=== PATIENT | female | born 1995 | race American Indian/Alaskan Native ===

== ENCOUNTER 2021-03-03 21:54 | Emergency (ER) | payer SELFPAY ==
[2021-03-03 22:00] VITALS: BP 123/73
[2021-03-03] MEDS ORDERED: IBUPROFEN 600 MG TAB PO ONE (22:39)
[2021-03-03] MEDS ORDERED: ACETAMINOPHEN 500 MG TAB PO ONE (22:39)
--- NOTE | 2021-03-03 22:44 | Emergency Department Report ---
ED General Adult HPI - General Chief complaint: Urogenital-Female Stated complaint: BREAST PAIN Source: patient Mode of arrival: Ambulatory Limitations: No Limitations - History of Present Illness Initial comments: Patient is a nulliparous 25-year-old -[place] female with no past medical history and who is not on control, presents to the ED with persistent bilateral breast pain intermittently for the last 3 months, but which has become constant in the last 2 weeks, worse in the last 3 days. Patient states that the pain is especially worse during her menstrual cycle. Patient denies heavy lifting, fever, chills, nausea, vomiting, traumatic injury, heavy lifting, shortness of breath, chest pain, abdominal pain, lactorrhea, dizziness, syncope, lightheadedness, cough or sore throat. MD Complaint: Bilateral breast pain -: Gradual, month(s) (3) Location: chest (Bilateral breast pain) Radiation: non-radiation Severity scale (0 -10): 8 Quality: aching, sharp Consistency: constant Improves with: none Worsens with: movement, other (Palpation) Associated Symptoms: denies other symptoms, other (Bilateral breast pain). denies: confusion, chest pain, cough, diaphoresis, fever/chills, headaches, malaise, nausea/vomiting, rash, shortness of breath, syncope, weakness Treatments Prior to Arrival: none - Related Data Previous Rx's Medication Instructions Recorded Last Taken Type Ibuprofen [Motrin] 800 mg PO Q8HR PRN #30 tablet 03/03/21 Unknown Rx traMADoL [Ultram] 50 mg PO Q6HR PRN #12 tablet 03/03/21 Unknown Rx ED Review of Systems ROS: Stated complaint: BREAST PAIN Other details as noted in HPI Constitutional: denies: chills, fever Eyes: denies: eye pain, eye discharge, vision change ENT: denies: ear pain, throat pain Respiratory: denies: cough, shortness of breath, wheezing Cardiovascular: other (Bilateral breast pain). denies: chest pain, palpitations Endocrine: no symptoms reported Gastrointestinal: denies: abdominal pain, nausea, diarrhea Genitourinary: denies: urgency, dysuria, discharge Musculoskeletal: denies: back pain, joint swelling, arthralgia Skin: denies: rash, lesions Neurological: denies: headache, weakness, paresthesias Psychiatric: denies: anxiety, depression Hematological/Lymphatic: denies: easy bleeding, easy bruising ED Past Medical Hx - Past Medical History Previous Medical History?: No - Surgical History Past Surgical History?: No - Medications Home Medications: Home Medications Medication Instructions Recorded Confirmed Last Taken Type Ibuprofen [Motrin] 800 mg PO Q8HR PRN #30 tablet 03/03/21 Unknown Rx traMADoL [Ultram] 50 mg PO Q6HR PRN #12 tablet 03/03/21 Unknown Rx ED Physical Exam - General Limitations: No Limitations General appearance: alert, in no apparent distress - Head Head exam: Present: atraumatic, normocephalic, normal inspection - Eye Eye exam: Present: normal appearance, PERRL, EOMI Pupils: Present: normal accommodation - ENT ENT exam: Present: normal exam, normal orophraynx, mucous membranes moist, TM's normal bilaterally, normal external ear exam - Neck Neck exam: Present: normal inspection, full ROM - Respiratory Respiratory exam: Present: normal lung sounds bilaterally, chest wall tenderness (Palpable bilateral breast tenderness, worse on the left than on the right), other (Female RN medical auditor Ms. Dunn present during the breast exam). Absent: respiratory distress, wheezes, rales, rhonchi, stridor, decreased breath sounds, prolonged expiratory - Cardiovascular Cardiovascular Exam: Present: regular rate, normal rhythm, normal heart sounds. Absent: systolic murmur, diastolic murmur, rubs, gallop - GI/Abdominal GI/Abdominal exam: Present: soft, normal bowel sounds. Absent: tenderness, guarding, rebound, hyperactive bowel sounds, hypoactive bowel sounds, organomegaly - Extremities Exam Extremities exam: Present: normal inspection, full ROM, normal capillary refill - Back Exam Back exam: Present: normal inspection, full ROM. Absent: tenderness, CVA tenderness (R), CVA tenderness (L), muscle spasm, paraspinal tenderness, vertebral tenderness - Neurological Exam Neurological exam: Present: alert, oriented X3, CN II-XII intact, normal gait, reflexes normal - Psychiatric Psychiatric exam: Present: normal affect, normal mood - Skin Skin exam: Present: warm, dry, intact, normal color. Absent: rash ED Course Vital Signs 03/03/21 21:55 Temperature 99.2 F Pulse Rate 66 Respiratory 18 Rate Blood Pressure 123/73 [Right] O2 Sat by Pulse 98 Oximetry ED Medical Decision Making - Medical Decision Making This is a nulliparous 25-year-old -[place] female with no past medical history and who is not on control, presents to the ED with persistent bilateral breast pain intermittently for the last 3 months, but which has become constant in the last 2 weeks, worse in the last 3 days. Patient states that the pain is especially worse during her menstrual cycle. In the ED, patient is alert and oriented x3 and is not in any distress. Patient was treated for pain in the ED. Based on the history and physical exam findings, the patient symptoms are likely due to fibrocystic breast changes and breast disease. Patient was discharged home on pain medications and given a referral to the [facility] physician Dr. Mazariegos for follow-up in 3 to 5 days for reevaluation. Patient was advised return to the ED immediately if symptoms get worse. - Differential Diagnosis Fibrocystic breast disease; fibrocystic breast changes; mastitis; abscess Critical care attestation.: If time is entered above; I have spent that time in minutes in the direct care of this critically ill patient, excluding procedure time. ED Disposition Clinical Impression: Bilateral fibrocystic breast changes Fibrocystic breast disease (FCBD) in female Qualifiers: Laterality: unspecified laterality Qualified Code(s): N60.19 - Diffuse cystic mastopathy of unspecified breast Disposition: 01 HOME / SELF CARE / HOMELESS Is pt being admited?: No Does the pt Need Aspirin: No Condition: Stable Instructions: Fibrocystic Breast Changes, Breast Self-Awareness, [id number], Fibrocystic Breast Changes, [id number] Additional Instructions: Take pain medication as needed with food, drink plenty of fluids and follow-up with your [facility] physician as advised. Return to the ED immediately if symptoms get worse. Prescriptions: Ibuprofen [Motrin] 800 mg PO Q8HR PRN #30 tablet PRN Reason: Pain , Severe (7-10) traMADoL [Ultram] 50 mg PO Q6HR PRN #12 tablet PRN Reason: Pain Referrals: MATT MAZARIEGOS MD [Staff Physician] - 3-5 Days Time of Disposition: 22:43 Print Language: SINGAPORE[place]
== END 2021-03-03 22:56 | disposition home or self-care (01) ==
LOC: ED 21:54
DX: N60.12 Diffuse cystic mastopathy of left breast (principal); N60.11 Diffuse cystic mastopathy of right breast; Z79.899 Other long term (current) drug therapy
CPT/HCPCS: 99282